=== PATIENT | female | born 1995 | race Caucasian/White ===

== ENCOUNTER 2018-12-02 19:04 | Emergency (ER) | payer OTHER ==
[2018-12-02 21:58] LABS: ABS Basophils 0 10^3/ul (0-0.2); ABS Eosinophils 0.1 10^3/ul (0-0.6); ABS Lymphocytes 1.5 10^3/ul (1.0-4.8); ABS Monocytes 0.6 10^3/ul (0-0.8); ABS Neutrophils 2.1 10^3/ul (1.5-7.7); ABS Nucleated RBC 0 10^3/ul; Eosinophil % 1.6 %; Hematocrit 42 % (35-47); Hemoglobin 14.2 g/dl (12.0-16.0); Lymphocyte % 35.9 %; Mean Corpuscular HGB Conc 34 g/dl (31-36); Mean Corpuscular Hemoglobin 28 pg (27-31); Mean Corpuscular Volume 85 fL (80-97); Mean Platelet Volume 9.3 fL (7.4-10.4); Nucleated Red Blood Cells % 0; Platelet Count 193 10^3/ul (150-450); Red Blood Count 4.99 10^6/ul (4.00-5.40); Red Cell Distribution Width 14 % (10.5-15); White Blood Count 4.3 10^3/ul (3.5-10.8)
[2018-12-02 22:16] LABS: ALT 14 U/L (7-52); AST 14 U/L (13-39); Albumin 4.4 g/dL (3.2-5.2); Albumin/Globulin Ratio 1.6 (1-3); Alkaline Phosphatase 90 U/L (34-104); Anion Gap 5 mmol/L (2-11); BUN/Creatinine Ratio 20.8 (8-20); Blood Urea Nitrogen 15 mg/dL (6-24); C Reactive Protein 5.51 mg/L (<8.01); CO2 Carbon Dioxide 28 mmol/L (22-32); Calcium 9.3 mg/dL (8.6-10.3); Chloride 106 mmol/L (101-111); EGFR African American 121.5 (>60); EGFR Non-African American 100.4 (>60); Globulin 2.7 g/dL (2-4); Glucose 75 mg/dL (70-100); Potassium 4.2 mmol/L (3.5-5.0); Sodium 139 mmol/L (135-145); Total Protein 7.1 g/dL (6.4-8.9)
[2018-12-02 22:23] LABS: HCG Pregnancy < 0.60 mIU/mL
[2018-12-02 23:50] LABS: Urine Appearance Clear; Urine Bilirubin Negative (Negative); Urine Blood Negative (Negative); Urine Color Straw; Urine Glucose Negative (Negative); Urine Ketones Negative (Negative); Urine Nitrite Negative (Negative); Urine Protein Negative (Negative); Urine Specific Gravity 1.011 (1.010-1.030); Urine Urobilinogen Negative (Negative)
--- NOTE | 2018-12-03 00:29 | ED ---
Abdominal Pain/Female - HPI Summary HPI Summary: Patient complains of suprapubic pain and intermittent nausea starting yesterday morning. Abdominal pain described as constant, initially suprapubic now radiating into the lower back, worse with movement and palpation, occasional spikes. Patient denies fever, cough, sore throat, CP, SOB, V/D, change in urine , change in BM, vaginal symptoms. Patient was seen at [place] [facility] yesterday for same symptoms and states pelvic ultrasound and urine were negative. also negative. Patient states pain worse today, at worst 7/10. Medical history is none. Abdominal surgical history is none. History of IUD. Patient breast-feeding, gave 8 months ago. Patient has appointment with OB next Wednesday. - History of Current Complaint Chief Complaint: EDAbdPain Stated Complaint: BACK/RIB PAIN Time Seen by Provider: 12/02/18 21:25 Hx Obtained From: Patient ?: No Onset/Duration: Sudden Onset Timing: Constant Severity Initially: Moderate Severity Currently: Moderate Pain Intensity: 8 Pain Scale Used: 0-10 Numeric Location: Suprapubic Radiates: Yes Radiates to: Back Character: Burning, Cramping Aggravating Factor(s): Movement Alleviating Factor(s): Nothing Associated Signs and Symptoms: Positive: Nausea Allergies/Adverse Reactions: Allergies Allergy/AdvReac Type Severity Reaction Status Date / Time No Known Allergies Allergy Verified 12/02/18 19:27 Home Medications: Home Medications Cholecalciferol CAP/TAB(NF) [Vitamin D3 CAP/TAB (NF)] 5,000 unit PO DAILY [History Confirmed 12/02/18] Vit No.129/Iron/Folic [ One Daily] 1 tab PO DAILY 12/02/18 [ History Confirmed 12/02/18] PMH/Surg Hx/FS Hx/Imm Hx Endocrine/Hematology History: Denies: Hx Anticoagulant Therapy Cardiovascular History: Denies: Hx Cardiac Arrest History: Denies: Hx Dialysis Musculoskeletal History: Denies: Hx Gout Sensory History: Denies: Hx Eye Prosthesis, Hx Legally Blind EENT History: Denies: Hx Deafness Neurological History: Denies: Hx Dementia Psychiatric History: Denies: Hx Autism Infectious Disease History: No Infectious Disease History: Denies: Traveled Outside the [place] in Last 30 Days - Social History Alcohol Use: Occasionally Substance Use Type: Reports: None Smoking Status (MU): Never Smoked Tobacco Review of Systems Constitutional: Negative Eyes: Negative ENT: Negative Cardiovascular: Negative Respiratory: Negative Positive: Abdominal Pain, Nausea Genitourinary: Negative Musculoskeletal: Negative Skin: Negative Neurological: Negative Psychological: Normal All Other Systems Reviewed And Are Negative: Yes Physical Exam - Summary Physical Exam Summary: Mild tenderness suprapubically. Physical exam of abdomen otherwise unremarkable. Discharge noted on pelvic exam. No bleed, lesions or mass. Mild bilateral adnexal tenderness. No CMT. Triage Information Reviewed: Yes Vital Signs On Initial Exam: Initial Vitals Temp Pulse Resp BP Pulse Ox 97.4 F 84 20 112/79 99 12/02/18 19:23 12/02/18 19:23 12/02/18 19:23 12/02/18 19:23 12/02/18 19:23 Vital Signs Reviewed: Yes Appearance: Positive: Well-Appearing Skin: Positive: Warm Head/Face: Positive: Normal Head/Face Inspection Eyes: Positive: Normal Neck: Positive: Supple Respiratory/Lung Sounds: Positive: Clear to Auscultation Cardiovascular: Positive: Normal Abdomen Description: Positive: Other: Pelvic Exam: Positive: External Exam Normal, Speculum Exam Normal, Discharge, Tender Adnexa - Mild tenderness bilaterally.. Negative: No Masses, Active Bleeding, Lesions, Mass, Tender w/ Cervical Motion, Tender Uterus, Ulcers Musculoskeletal: Positive: Normal Neurological: Positive: Normal Psychiatric: Positive: Normal AVPU Assessment: Alert Diagnostics - Vital Signs Vital Signs Temp Pulse Resp BP Pulse Ox 12/02/18 19:23 97.4 F 84 20 112/79 99 - Laboratory Lab Results: Lab Results 12/02/18 12/02/18 12/02/18 Range/Units 21:47 21:47 23:40 WBC 4.3 (3.5-10.8) 10^3/ul RBC 4.99 (4.00-5.40) 10^6/ul Hgb 14.2 (12.0-16.0) g/dl Hct 42 (35-47) % MCV 85 (80-97) fL MCH 28 (27-31) pg MCHC 34 (31-36) g/dl RDW 14 (10.5-15) % Plt Count 193 (150-450) 10^3/ul MPV 9.3 (7.4-10.4) fL Neut % (Auto) 48.3 % Lymph % (Auto) 35.9 % Bell % (Auto) 13.3 % Eos % (Auto) 1.6 % Baso % (Auto) 0.9 % Absolute Neuts (auto) 2.1 (1.5-7.7) 10^3/ul Absolute Lymphs (auto) 1.5 (1.0-4.8) 10^3/ul Absolute Monos (auto) 0.6 (0-0.8) 10^3/ul Absolute Eos (auto) 0.1 (0-0.6) 10^3/ul Absolute Basos (auto) 0 (0-0.2) 10^3/ul Absolute Nucleated RBC 0 10^3/ul Nucleated RBC % 0 Sodium 139 (135-145) mmol/L Potassium 4.2 (3.5-5.0) mmol/L Chloride 106 (101-111) mmol/L Carbon Dioxide 28 (22-32) mmol/L Anion Gap 5 (2-11) mmol/L BUN 15 (6-24) mg/dL Creatinine 0.72 (0.51-0.95) mg/dL Est GFR ( Amer) 121.5 (>60) Est GFR (Non-Af Amer) 100.4 (>60) BUN/Creatinine Ratio 20.8 H (8-20) Glucose 75 (70-100) mg/dL Calcium 9.3 (8.6-10.3) mg/dL Total Bilirubin 0.50 (0.2-1.0) mg/dL AST 14 (13-39) U/L ALT 14 (7-52) U/L Alkaline Phosphatase 90 (34-104) U/L C-Reactive Protein 5.51 (<8.01) mg/L Total Protein 7.1 (6.4-8.9) g/dL Albumin 4.4 (3.2-5.2) g/dL Globulin 2.7 (2-4) g/dL Albumin/Globulin Ratio 1.6 (1-3) Beta HCG, Quant < 0.60 mIU/mL Urine Color Straw Urine Appearance Clear Urine pH 6.0 (5-9) Ur Specific [place] 1.011 (1.010-1.030) Urine Protein Negative (Negative) Urine Ketones Negative (Negative) Urine Blood Negative (Negative) Urine Nitrate Negative (Negative) Urine Bilirubin Negative (Negative) Urine Urobilinogen Negative (Negative) Ur Leukocyte Esterase Negative (Negative) Urine Glucose Negative (Negative) Result Diagrams: 12/02/18 21:47 12/02/18 21:47 Lab Statement: Any lab studies that have been ordered have been reviewed, and results considered in the medical decision making process. Abdominal Pain Fem Course/Dx - Course Course Of Treatment: Patient complains of suprapubic pain and intermittent nausea starting yesterday morning. Abdominal pain described as constant, initially suprapubic now radiating into the lower back, worse with movement and palpation, occasional spikes. Patient denies fever, cough, sore throat, CP, SOB , V/D, change in urine, change in BM, vaginal symptoms. Patient was seen at [place] [facility] yesterday for same symptoms and states pelvic ultrasound and urine were negative. also negative. Patient states pain worse today, at worst 7/10. Medical history is none. Abdominal surgical history is none. History of IUD. Patient breast-feeding, gave 8 months ago. Patient has appointment with OB next Wednesday. Physical exam:Mild tenderness suprapubically. Physical exam of abdomen otherwise unremarkable. Discharge noted on pelvic exam. No bleed, lesions or mass. Mild bilateral adnexal tenderness. No CMT. Vital signs within normal limits. Labs unremarkable. Pelvic ultrasound unremarkable. Advised patient to follow-up with [facility]. Patient breast- feeding so recommended Tylenol and ibuprofen. Also advised patient to return for any new or worsening symptoms. Patient understands and approves of plan. - Diagnoses Provider Diagnoses: Abdominal pain Discharge - Sign-Out/Discharge Documenting (check all that apply): Patient Departure Patient Received Moderate/Deep Sedation with Procedure: No - Discharge Plan Condition: Stable Disposition: HOME Prescriptions: Promethazine TAB* [Phenergan TAB*] 25 mg PO Q8H PRN 5 Days #15 tab PRN Reason: Nausea Patient Education Materials: Abdominal Pain (ED) Referrals: Meme Haider MD [Primary Care Provider] - Additional Instructions: Follow-up with your existing [facility] appointment this coming Wednesday for further evaluation. Tylenol and ibuprofen for pain as you are breast-feeding. Return to the ED for any new or worsening symptoms. - Billing Disposition and Condition Condition: STABLE Disposition: Home
[2018-12-03] MEDS ORDERED: Acetaminophen TAB* 325 MG PO ONE (00:33)
[2018-12-03 00:48] VITALS: BP 109/65
[2018-12-05 13:42] LABS: Neisseria gonorrhoeae (GC) RNA Negative (Negative)
[2018-12-05 13:52] LABS: Trichomonas vaginalis Result Negative (Negative)
== END 2018-12-03 00:49 | disposition home or self-care (01) ==
LOC: ED 19:04
DX: R10.30 Lower abdominal pain, unspecified (principal); R11.0 Nausea; M54.5 Low back pain; Z32.02 Encounter for pregnancy test, result negative; Z97.5 Presence of (intrauterine) contraceptive device
CPT/HCPCS: 36415; 76856; 80053; 81003; 84702; 85025; 86140; 87480; 87491; 87510; 87591; 87661; 99283; A9270-GY

== ENCOUNTER 2019-07-05 10:11 | Emergency (ER) | payer OTHER ==
[2019-07-05 10:25] VITALS: BP 122/72
--- NOTE | 2019-07-05 11:45 | UC ---
Dizzy HPI HPI Summary: 23 year old woman, generally well, with acute onset of nausea without vomiting and vertiginous feeling associated with a sense of the room oscilating, not spinning. No associated headache, fever, hearing loss, diplopia. Rested, but the symptoms have persisted this morning. No recent falls or head trauma. - History Of Current Complaint Chief Complaint: UCDizziness Stated Complaint: DIZZINESS,LIGHTHEADED,NAUSEA Time Seen by Provider: 07/05/19 11:33 Hx Obtained From: Patient Hx Last Menstrual Period: n/a Onset/Duration: Sudden Onset, Lasting Hours Timing: Constant Severity Initially: Moderate Severity Currently: Moderate Pain Intensity: 0 Character: Room Spinning, Lightheaded, Dizzy Aggravating Factor(s): Position Change Alleviating Factor(s): Rest Associated Signs And Symptoms: Positive: Nausea. Negative: Vomiting - Risk Factors Cardiac Risk Factors: Negative CVA Risk Factor: Negative - Allergies/Home Medications Allergies/Adverse Reactions: Allergies Allergy/AdvReac Type Severity Reaction Status Date / Time No Known Allergies Allergy Verified 07/05/19 10:25 Home Medications: Home Medications PARoxetine HCL TAB* [Paxil TAB*] 20 mg PO DAILY 07/05/19 [History Confirmed 09/12] PMH/Surg Hx/FS Hx/Imm Hx Previously Healthy: Yes - overweight Psychological History: Depression - began tx with paxil 3 months ago. Other History Of: Negative For: Anticoagulant Therapy - Surgical History Surgical History: Yes Surgery Procedure, Year, and Place: t/a; ear tubes as young child - Social History Occupation: Employed Part-time Lives: With Family Alcohol Use: Occasionally Substance Use Type: None Smoking Status (MU): Never Smoked Tobacco Review of Systems All Other Systems Reviewed And Are Negative: Yes Constitutional: Positive: Fatigue Skin: Positive: Negative Eyes: Negative: Blurred Vision, Diplopia, Photophobia ENT: Negative: Sore Throat, Ear Ache, Nasal Discharge, Sinus Congestion Respiratory: Positive: Negative Neurological: Negative: Headache, Weakness, Paresthesia Is Patient Immunocompromised?: No Physical Exam Appearance: Ill-Appearing - looks mildly unwell, Obese Vital Signs: Initial Vital Signs Temp 98.2 F 07/05/19 10:18 Pulse 83 07/05/19 10:18 Resp 20 07/05/19 10:18 BP 122/72 07/05/19 10:18 Pulse Ox 100 07/05/19 10:18 Eye Exam: Other - NACHO, no photophobi, fundi normal and well defined. Eyes: Positive: Conjunctiva Clear ENT: Positive: Pharynx normal, TMs normal Neck: Positive: Supple, Nontender, No Lymphadenopathy Respiratory: Positive: Lungs clear, Normal breath sounds Cardiovascular: Positive: RRR Musculoskeletal Exam: Normal Musculoskeletal: Positive: Strength Intact Neurological Exam: Other - CNII-XII normal, increase symptoms with head turning to the right but no sustained nystagmus. Cannot provoke nystagmus with position changes. Neurological: Positive: Alert, Muscle Tone Normal, Fatigued, Other: - normal gait, no pronator drift, no past pointing on finger to nose touching. Negative Romberg. Psychological Exam: Normal Skin Exam: Normal Dizzy Course/Dx - Course Course Of Treatment: Discussed use of meclizine in not contraindicated versus use of zofran; chose trial of ondansetron for nausea. Rest at home. Anticipate resolution in 2 to 3 days, referral for PT i f persists. - Differential Dx/Diagnosis Differential Diagnosis/HQI/PQRI: Benign Paroxysmal Positional Vertigo, CVA, Transient Ischemic Attack Provider Diagnosis: Benign paroxysmal positional vertigo of left ear Discharge ED - Sign-Out/Discharge Documenting (check all that apply): Patient Departure All imaging exams completed and their final reports reviewed: No Studies - Discharge Plan Condition: Stable Disposition: HOME Prescriptions: Ondansetron HCl [Zofran 4 MG TAB] 4 mg PO Q6H PRN #10 tab PRN Reason: Nausea Patient Education Materials: Benign Paroxysmal Positional Vertigo (ED) Forms: *Work Release Referrals: Meme Haider MD [Primary Care Provider] - Additional Instructions: Rest at home today; additional zofran (ondansetron) has been sent to your pharmacy for use if nausea continues. I suggest a trial of physical therapy if your symptoms persist beyond 2 to 3 days. - Billing Disposition and Condition Condition: STABLE Disposition: Home
[2019-07-05] MEDS ORDERED: Ondansetron ODT TAB* 4 MG PO ONE (11:50)
== END 2019-07-05 12:07 | disposition home or self-care (01) ==
LOC: UCCORT 10:11
DX: H81.12 Benign paroxysmal vertigo, left ear (principal); R11.0 Nausea; R53.83 Other fatigue; F32.9 Major depressive disorder, single episode, unspecified
CPT/HCPCS: 99212; A9270-GY; G0463

== ENCOUNTER 2019-08-28 17:58 | Emergency (ER) | payer OTHER ==
[2019-08-28 19:00] VITALS: BP 121/69
--- NOTE | 2019-08-28 20:29 | ED ---
Throat Pain/Nasal Congestion - HPI Summary HPI Summary: 23 yr old female with the complaint of sore throat. Onset yesterday and she has pain in her upper cervical lymph nodes as well. No loss of voice, no drooling, no stridor. She has had no trouble speaking full sentences. No other complaints. - History of Current Complaint Chief Complaint: UCRespiratory Time Seen by Provider: 08/28/19 19:44 - Allergies/Home Medications Allergies/Adverse Reactions: Allergies Allergy/AdvReac Type Severity Reaction Status Date / Time No Known Allergies Allergy Verified 08/28/19 18:53 Home Medications: Home Medications Bupropion XL* [Wellbutrin XL *] 1 tab DAILY 08/28/19 [History Confirmed 08/28/19 ] PMH/Surg Hx/FS Hx/Imm Hx Endocrine/Hematology History: Denies: Hx Anticoagulant Therapy Cardiovascular History: Denies: Hx Cardiac Arrest History: Denies: Hx Dialysis Musculoskeletal History: Denies: Hx Gout Sensory History: Denies: Hx Eye Prosthesis, Hx Legally Blind, Hx Deafness Opthamlomology History: Denies: Hx Eye Prosthesis, Hx Legally Blind Neurological History: Denies: Hx Dementia Psychiatric History: Denies: Hx Autism - Surgical History Surgery Procedure, Year, and Place: t/a; ear tubes as young child. wisdom teeth Infectious Disease History: No Infectious Disease History: Denies: Traveled Outside the [place] in Last 30 Days - Family History Known Family History: Positive: None - Social History Alcohol Use: Occasionally Substance Use Type: Reports: None Smoking Status (MU): Never Smoked Tobacco Review of Systems Constitutional: Negative Positive: Sore Throat All Other Systems Reviewed And Are Negative: Yes Physical Exam Triage Information Reviewed: Yes Vital Signs On Initial Exam: Initial Vitals Temp Pulse Resp BP Pulse Ox 98.2 F 87 16 121/69 100 08/28/19 18:55 08/28/19 18:55 08/28/19 18:55 08/28/19 18:55 08/28/19 18:55 Vital Signs Reviewed: Yes Appearance: Positive: Well-Appearing, No Pain Distress Skin: Positive: Warm, Skin Color Reflects Adequate Perfusion Head/Face: Positive: Normal Head/Face Inspection Eyes: Positive: EOMI ENT: Positive: Pharyngeal erythema, TMs normal, Uvula midline. Negative: Nasal congestion, Nasal drainage, Tonsillar swelling, Tonsillar exudate Neck: Positive: Tenderness @ - bilateral anterior superior cervcial lymph nodes. No redness. Respiratory/Lung Sounds: Positive: Clear to Auscultation, Breath Sounds Present Cardiovascular: Positive: RRR. Negative: Murmur Abdomen Description: Negative: Distended Musculoskeletal: Positive: Strength/ROM Intact Neurological: Positive: Sensory/Motor Intact, Alert, Oriented to Person Place, Time, CN Intact II-III, Normal Gait, Speech Normal Psychiatric: Positive: Normal Diagnostics - Vital Signs Vital Signs Temp Pulse Resp BP Pulse Ox 08/28/19 18:55 98.2 F 87 16 121/69 100 - Laboratory Lab Results: Lab Results 08/28/19 Range/Units 20:02 Group A Strep Rapid Negative (Negative) Lab Statement: Any lab studies that have been ordered have been reviewed, and results considered in the medical decision making process. EENT Course/Dx - Course Course Of Treatment: 23 yr old with pharyngitis and reactive lymph nodes. No drooling, and stable otherwise. Rapid strep negative. DC home on tylenol and motrin - Diagnoses Provider Diagnoses: Pharyngitis Discharge ED - Sign-Out/Discharge Documenting (check all that apply): Patient Departure All imaging exams completed and their final reports reviewed: No Studies - Discharge Plan Condition: Good Disposition: HOME Patient Education Materials: Pharyngitis (ED) Referrals: Meme Haider MD [Primary Care Provider] - - Billing Disposition and Condition Condition: GOOD Disposition: Home
== END 2019-08-28 20:37 | disposition home or self-care (01) ==
LOC: UCCORT 17:58
DX: J02.9 Acute pharyngitis, unspecified (principal)
CPT/HCPCS: 87651; 99211; G0463